=== PATIENT | male | born 1985 | race Caucasian/White ===

== ENCOUNTER 2021-03-16 23:28 | Emergency (ER) | payer OTHER, SELFPAY ==
--- NOTE | ~2021-03-16 | XR_ITS ---
EXAMINATION: XR CHEST CLINICAL INFORMATION: Shortness of breath COMPARISON: 08/23/2019 TECHNIQUE: Frontal view of the chest was obtained. FINDINGS: Heart size normal. Pulmonary arteries are prominent and unchanged. No lung masses are seen. No infiltrates or effusions. XR/XR chest 1V IMPRESSION: No acute intrathoracic disease
[2021-03-16 23:39] VITALS: BP 128/83; BP 140/90; PULSE 110; PULSE 112; RESP 20; O2SAT 100; O2SAT 95; BMI 19.2
--- NOTE | 2021-03-17 00:05 | ED.SOB ---
HPI - SOB/Dyspnea General Chief Complaint: Dyspnea Stated Complaint: difficulty breathing Time Seen by Provider: 03/17/21 00:04 History of Present Illness HPI Narrative: Patient is a 35-year-old male with a history of asthma. Been hospitalized x1. Positive coughing upper respiratory symptoms. Patient is now some smoke last night. Subsequently felt very short of breath wheezing. Sent in for further evaluation. Try to use his inhaler at home to no relief. Patient also admits to using cocaine a few days ago. Patient denies any intubation in the past. He is immunized for COVID. Related Data Previous Rx's Medication Instructions Recorded prednisone 20 mg tablet 40 mg PO DAILY #10 tab 03/17/21 Allergies Allergy/AdvReac Type Severity Reaction Status Date / Time No Known Allergies Allergy Unverified 12/26/19 17:44 [No Known Allergies*] Review of Systems Review of Systems: Positive coughing shortness of breath positive history of asthma Yes all other systems are reviewed and are negative PMFSH Past Medical History Attestation statement: The following information was validated with the patient. Medical History Asthma Social History Social History Advance Directives: No Advance Directives Information Provided: No Physical Exam Vital Signs: Vital Signs: Last Vital Signs Pulse 109 H 03/17/21 01:27 Resp 18 03/17/21 01:27 BP 111/72 03/17/21 01:27 Pulse Ox 94 03/17/21 01:27 BMI result Body Mass Index 19.2 Appearance: Alert. Oriented X3. No acute distress. Eyes: Pupils equal, round and reactive to light. ENT: Pharynx normal. Neck: Normal inspection. Neck supple. No lymph nodes noted. No crepitus CVS: Normal heart rate and rhythm. Pulses normal. Normal S1 and S2 Respiratory: No respiratory distress. Breath sounds normal. No Wheezing. No rales Abdomen: Soft and nontender. No rigidity. No distention. good BS x4 Skin: Skin warm and dry. Normal skin color. Normal skin turgor. Extremities: No lower extremity edema. Neurovascular intact to all extremities. No Lacerations. No Rash Neuro: Oriented X 3. No motor deficit. No sensory deficit. Moving all extermities. No slurred speech MDM - SOB/Dyspnea MDM Narrative Medical decision making narrative: Given neb treatment. Symptoms improved dramatically. Steroid given. Observe any emergency department. Patient's EKG showed a sinus pattern heart rate was 100 MS cares QT within normal limits as no acute ST segment elevation. Electrolytes unremarkable. Chest x-ray showed no focal infiltrate. COVID test was negative. Will discharge patient home. Ambulated well in the ED. In stable condition. On repeat check patient had minimal wheezing but moving good air. Lab Data Attestation: I reviewed the patient's lab results. Labs: Lab Results 03/17/21 Range/Units 00:50 COVID-19 ([facility]) Negative (Negative) COVID-19 Clin Com See Note Discharge Plan Discharge Clinical Impression: Asthma with exacerbation Patient Disposition: Home, Self-Care Instructions: Asthma (ED) Prescriptions: New prednisone 20 mg tablet 40 mg PO DAILY Qty: 10 RF: 0 Referrals: Physician,Unknown J [Primary Care Provider] - 2 days
--- NOTE | 2021-03-17 00:18 | ECG_ITS ---
Test Reason : SOB Blood Pressure : / mmHG Vent. Rate : 107 BPM Atrial Rate : 107 BPM P-R Int : 144 ms QRS Dur : 078 ms QT Int : 320 ms P-R-T Axes : 082 -07 059 degrees QTc Int : 427 ms Sinus tachycardia Otherwise normal ECG When compared with ECG of 22-JUN-2019 08:37, Vent. rate has increased BY 35 BPM Referred By: Allegra Ruiz Electronically Signed By:Da Pelaez
--- NOTE | 2021-03-17 00:19 | PC.NURSE ---
PT received breathing treatment, no longer reporting SOB. PT is still complaining of CP. This RN ordered EKG and PT placed on a monitoring engineer.
[2021-03-17] MEDS: predniSONE 20 MG TABLET 60 MG PO (00:45)
[2021-03-17 01:19] LABS: COVID-19 Test Negative (Negative)
[2021-03-17 01:27] VITALS: BP 111/72; PULSE 109; RESP 18; O2SAT 94
--- NOTE | 2021-03-17 01:28 | PC.NURSE ---
Provider made aware of PT complaint of chest tightness. Provider asked this RN to take PT off of supplemental O2.
[2021-03-17 02:24] VITALS: PULSE 96; O2SAT 91
[2021-03-17] MEDS: Albuterol Sulfate (0.083%) 2.5 MG/3 ML VIAL.NEB 5 MG INHALE (02:24)
[2021-03-17] MEDS: Acetaminophen 325 MG TABLET 650 MG PO (02:57)
== END 2021-03-17 03:26 | disposition home or self-care (01) ==
PROVIDERS: Emergency Provider Emergency Medicine Emergency Medical Services
DX: J45.901 Unspecified asthma with (acute) exacerbation (principal); Z20.822 Contact with and (suspected) exposure to COVID-19
CPT/HCPCS: 36415; 71045; 87635; 93005; 99284

== ENCOUNTER 2021-03-22 15:22 | Emergency (ER) | payer OTHER, SELFPAY ==
--- NOTE | ~2021-03-22 | XR_ITS ---
EXAMINATION: XR CHEST CLINICAL INFORMATION: Shortness of breath with wheezing COMPARISON: 03/17/2020 TECHNIQUE: Frontal view of the chest was obtained. FINDINGS: Lungs remain well-expanded and clear. Chronic coarse interstitial prominence consistent with bronchial wall thickening in the setting of reactive airways disease. No focal consolidation to suggest superimposed consolidative pneumonia. Normal heart size. No pleural effusion or pneumothorax. Regional skeleton intact. XR/XR chest 1V IMPRESSION: No acute pulmonary disease. Chronic interstitial prominence consistent with reactive airways disease.
[2021-03-22 15:33] VITALS: BP 107/73; PULSE 70; O2SAT 95
[2021-03-22 15:46] VITALS: BP 106/59; PULSE 65; RESP 18; TEMP 36.8; O2SAT 95; BMI 25.9
--- NOTE | 2021-03-22 15:46 | ECG_ITS ---
Test Reason : DYSPNEA Blood Pressure : / mmHG Vent. Rate : 084 BPM Atrial Rate : 084 BPM P-R Int : 158 ms QRS Dur : 082 ms QT Int : 360 ms P-R-T Axes : 081 000 042 degrees QTc Int : 425 ms Normal sinus rhythm with sinus arrhythmia Normal ECG When compared with ECG of 17-MAR-2021 00:36, No significant change was found Referred By: Margarita Schwartz Electronically Signed By:ALIS HENDRIX MD
--- NOTE | 2021-03-22 15:54 | ED.ASTHMA ---
HPI - Asthma General Chief Complaint: Asthma Stated Complaint: ASTHMA ATTACK PER EMS Time Seen by Provider: 03/22/21 15:24 Source: patient and EMS Mode of arrival: EMS Limitations: no limitations History of Present Illness HPI Narrative: 35-year-old male with a past medical history of asthma, anxiety, depression and substance abuse presenting to the ED via EMS currently receiving a DuoNeb with oxygen at 88% on room air with complaints of increased shortness of breath/chest tightness/wheezing over the past few days worse today. Reports that he usually uses his albuterol inhaler although no symptomatic relief. He reports that he was seen here on 03/16/2021 for same complaint and discharge with steroids and he reports he has taking as prescribed. He reports he has been hospitalized once in the past. Denies ever being intubated. Denies any fevers, chills, dizziness, headaches, changes in vision, jaw pain, dyspnea on exertion, orthopnea, palpitations, nausea/vomiting/diarrhea, abdominal pain, lower extremity edema, calf tenderness, recent travel or sick contacts, loss of taste or smell. Reports that he is vaccinated to COVID and to the flu. MD complaint: asthma attack , shortness of breath and wheezing Onset (ago): day(s) Severity: severe and worse than usual Context: none known Associated symptoms: none Asthma History: other (Has been hospitalized once) Treatments Prior to Arrival: inhaled bronchodilator Related Data Current Asthma Therapy: inhaled bronchodilator Previous Rx's Medication Instructions Recorded prednisone 20 mg tablet 40 mg PO DAILY #10 tab 03/17/21 Allergies Allergy/AdvReac Type Severity Reaction Status Date / Time No Known Allergies Allergy Unverified 12/26/19 17:44 [No Known Allergies*] Review of Systems Review of Systems: Constitutional : denies med noncompliance, no history of PE or DVT, denies recent travel, No Fever, No Chills ENT/Mouth : No Hoarseness, No sore throat, No Rhinorrhea, No Nasal congestion, No Sinus Pressure, No Ear Pain, No stridor, Eyes: No Redness, No Discharge, No Vision Changes Cardiovascular : No Chest Pain, + SOB, No Dyspnea on Exertion, No Edema, no pleurisy, Respiratory : No Cough, + wheezing, No Sputum, no stridor, no hemoptysis, Gastrointestinal : No Nausea, No Vomiting, No Diarrhea, No abdominal Pain Genitourinary : No Dysuria, No Hematuria Musculoskeletal : No joint pain/swelling, No Myalgias Extremities: no extremity swelling /pain Skin : No rash, no itching, no swelling Neuro : No Weakness, No Numbness, No Headache, No Dizziness, No Paresthesias Psych : No anxiety, depression Heme/Lymph: No Bruising, No Bleeding Endocrine : No Polyuria, No Polydipsia Yes all other systems are reviewed and are negative [facility] Past Medical History Attestation statement: The following information was validated with the patient. Medical History Asthma Social History Social History Advance Directives: No Advance Directives Information Provided: No Physical Exam Vital Signs: Vital Signs: Last Vital Signs Temp 98.2 F 03/22/21 15:46 Pulse 94 03/22/21 18:28 Resp 18 03/22/21 17:01 BP 106/59 L 03/22/21 15:46 Pulse Ox 92 03/22/21 18:28 Oxygen Flow Rate 4 03/22/21 15:46 BMI result Body Mass Index 25.9 vital signs have been reviewed as normal and appeared to be correct. Blood pressure hypotensive at 106/59. Heart rate normal. Respiration rate normal. Temperature normal. Oxygen saturation hypoxic at 88% on RA. Appearance: Alert. Oriented X3. In acute respiratory distress. Head: Normal external exam. Normocephalic. Atraumatic. Eyes: PERRLA. EOMI. Conjunctiva and sclera normal. Eyelids normal. ENT: Pharynx normal. Uvula midline. Moist mucous membranes. No trismus noted. No drooling noted. No muffled voice noted. Neck: Normal inspection. Neck supple. FROM. No adenopathy. Thyroid Normal. No meningeal signs. No neck mass noted. CVS: Normal heart rate and rhythm. Heart sound normal. Pulses normal throughout. No murmurs/rales/gallops. Respiratory: In respiratory distress with decreased breath sounds and inspiratory and expiratory wheezing throughout with accessory muscle usage and abdominal retractions. No rales/rhonchi noted. Chest nontender. Abdomen: Soft and nontender. Bowel sounds normal in all 4 quadrants. No distention noted. No organomegaly noted. No visible injury noted. Back: No CVA tenderness. Full range of motion noted. No rashes/lesion/induration/fluctuance or signs of infection noted. Skin: Skin warm and dry. Normal skin color. Normal skin turgor. No rashes/lesions/lacerations noted. Extremities: No lower extremity edema. No calf tenderness is noted. Extremities exhibit normal range of motion. Extremities nontender. Neuro: Oriented X 3. No motor deficit. No sensory deficit. Reflexes normal. Normal steady gait. No focal neuro deficits noted. Vascular: + radial pulses/+ 2 distal pedal pulses/+2 dorsalis pedis b/l. Normal cap refill. No cyanosis noted to upper extremity nails and lower extremity toes nails. Course Course Course Narrative: 19:30 - labs reviewed and all labs within normal limits. UA revealed 5 ketones and 15-29 white blood cells although no nitrates. Will wait for culture. Patient positive for opioids/fentanyl/cocaine and marijuana. He admits to buying pills off of the streets and I explained to him that most likely his pills are being mixed with fentanyl. Patient noted for COVID/RSV/flu. Chest x-ray revealed chronic interstitial prominence consistent with reactive airway disease otherwise no other acute processes. EKG normal sinus rhythm no acute ischemic change are noted. - with resting patient is a 89-92% on room air and then when you walk the patient he goes up to 92-94% on room air although I do not feel comfortable discharging the patient as this is his 2nd visit here his oxygen has not gone over 95% and patient also feels the same way that he should be admitted. Therefore I spoke to Dr. Kahn and she is septic admission at this time. MDM - Asthma MDM Narrative Medical decision making narrative: 15:50pm 35-year-old male presenting to the ED with acute asthma exacerbation over the past few days worse today via EMS receiving DuoNeb with oxygen at 88% on room air and mildly hypotensive at 106/59. Otherwise all other vitals are within normal limits. CV RRR. On exam patient noted to have inspiratory and expiratory wheezing throughout with decreased breath sounds and accessory muscle usage noted and abdominal retractions. No rales/rhonchi noted. No lower extremity edema or calf tenderness is noted. Therefore at this time will obtain labs, EKG, chest x-ray, swab the patient for COVID/RSV/flu and Provide an hour long breathing treatment, a L of IV fluids, 125 mg IV Solu-Medrol, 2 g of magnesium then re-evaluate. Differential Diagnosis Differential diagnosis: Likely Acute exacerbation, Status asthmaticus, Acute asthmatic bronchitis, Pneumonia and Pneumothorax Medical Records Attestation: I reviewed the patient's medical records. Lab Data Attestation: I reviewed the patient's lab results. Result diagrams: 03/22/21 16:02 03/22/21 16:02 Labs: Lab Results 03/22/21 03/22/21 03/22/21 Range/Units 16:01 16:02 16:02 WBC 10.3 (4.8-10.8) X10*3/uL RBC 4.98 (4.60-5.80) X10*6/uL Hgb 14.6 (14.0-18.0) g/dl Hct 44.0 (42.0-52.0) % MCV 88.4 (80.0-98.0) fL MCH 29.3 (27.0-33.0) pg MCHC 33.2 (31.0-36.0) g/dl RDW 12.7 (11.0-16.0) % Plt Count 242 (160-400) X10*3/uL MPV 10.7 (9.4-12.4) fL Immature Gran % (Auto) 0.2 (0.0-0.4) % Neut % (Auto) 70.9 (45-73) % Lymph % (Auto) 13.6 L (20-40) % [place] % (Auto) 7.3 (2-11) % Eos % (Auto) 7.7 H (0-4) % Baso % (Auto) 0.3 (0-2) % Lymph # (Auto) 1.4 (1.2-4.9) X10*3/uL [place] # (Auto) 0.8 (0.1-1.2) X10*3/uL Eos # (Auto) 0.8 H (0.0-0.4) X10*3/uL Baso # (Auto) 0.0 (0.0-0.2) X10*3/uL Abs Immat Gran (auto) 0.02 (0.00-0.03) X10*3/uL Absolute Neuts (auto) 7.3 (2.0-8.3) x10*3/uL Absolute Nucleated RBC 0.000 (0.0-0.012) X10*3/uL Nucleated RBC % (auto) 0.0 (0.0-0.2) /100WBC Hold Purple Top SEE NOTE Sodium (135-145) mmol/L Potassium (3.3-5.1) mmol/L Chloride (96-108) mmol/L Carbon Dioxide (22-29) mmol/L Anion Gap (12-20) BUN (9-16) mg/dL Creatinine (0.5-1.4) mg/dL Estim Creat Clear Calc Estimated GFR Random Glucose (60-115) mg/dL Lactic Acid (0.5-2.0) mmol/L Calcium (8.4-10.2) mg/dL Magnesium (1.6-2.6) mg/dL Total Bilirubin (0.0-1.0) mg/dL AST (5-37) U/L ALT (0-40) U/L Alkaline Phosphatase (39-117) U/L Total Protein (6.5-8.0) g/dL Albumin (3.5-5.0) g/dL Urine Color Urine Appearance Urine pH (5.0-8.0) Ur Specific [place] (1.005-1.025) Urine Protein (NEG-TRACE) MG/DL Urine Glucose (UA) (NEG) MG/DL Urine Ketones (NEG) MG/DL Urine Blood (NEG) Urine Nitrite (NEG) Ur Leukocyte Esterase (NEG) Urine RBC (0) /HPF Urine WBC (0-4) /HPF Ur Squamous Epith Cells /LPF Urine Bacteria /LPF WBC Casts /LPF Urine Mucus /LPF Urine Opiates Screen (Not Detect) Urine Fentanyl Screen (Not Detect) Ur Barbiturates Screen (Not Detect) Ur Phencyclidine Scrn (Not Detect) Ur Amphetamines Screen (Not Detect) U Benzodiazepines Scrn (Not Detect) Urine Cocaine Screen (Not Detect) U Marijuana (THC) Screen (Not Detect) Influenza Type A (PCR) NEGATIVE (Negative) Influenza Type B (PCR) NEGATIVE (Negative) RSV RNA Qual (PCR) NEGATIVE (Negative) SARS-CoV-2 RNA (RT-PCR) NEGATIVE (Negative) 03/22/21 03/22/21 03/22/21 Range/Units 16:02 16:02 16:47 WBC (4.8-10.8) X10*3/uL RBC (4.60-5.80) X10*6/uL Hgb (14.0-18.0) g/dl Hct (42.0-52.0) % MCV (80.0-98.0) fL MCH (27.0-33.0) pg MCHC (31.0-36.0) g/dl RDW (11.0-16.0) % Plt Count (160-400) X10*3/uL MPV (9.4-12.4) fL Immature Gran % (Auto) (0.0-0.4) % Neut % (Auto) (45-73) % Lymph % (Auto) (20-40) % [place] % (Auto) (2-11) % Eos % (Auto) (0-4) % Baso % (Auto) (0-2) % Lymph # (Auto) (1.2-4.9) X10*3/uL [place] # (Auto) (0.1-1.2) X10*3/uL Eos # (Auto) (0.0-0.4) X10*3/uL Baso # (Auto) (0.0-0.2) X10*3/uL Abs Immat Gran (auto) (0.00-0.03) X10*3/uL Absolute Neuts (auto) (2.0-8.3) x10*3/uL Absolute Nucleated RBC (0.0-0.012) X10*3/uL Nucleated RBC % (auto) (0.0-0.2) /100WBC Hold Purple Top Sodium 135 (135-145) mmol/L Potassium 3.8 (3.3-5.1) mmol/L Chloride 102 (96-108) mmol/L Carbon Dioxide 25 (22-29) mmol/L Anion Gap 12 (12-20) BUN 7 L (9-16) mg/dL Creatinine 0.89 (0.5-1.4) mg/dL Estim Creat Clear Calc 109.3 Estimated GFR > 60 Random Glucose 113 (60-115) mg/dL Lactic Acid 1.0 (0.5-2.0) mmol/L Calcium 9.4 (8.4-10.2) mg/dL Magnesium 2.1 (1.6-2.6) mg/dL Total Bilirubin 0.6 (0.0-1.0) mg/dL AST 18 (5-37) U/L ALT 10 (0-40) U/L Alkaline Phosphatase 78 (39-117) U/L Total Protein 6.5 (6.5-8.0) g/dL Albumin 3.9 (3.5-5.0) g/dL Urine Color YELLOW Urine Appearance HAZY Urine pH 6.0 (5.0-8.0) Ur Specific [place] 1.025 (1.005-1.025) Urine Protein NEG (NEG-TRACE) MG/DL Urine Glucose (UA) NEG (NEG) MG/DL Urine Ketones 5 (NEG) MG/DL Urine Blood TRACE (NEG) Urine Nitrite NEG (NEG) Ur Leukocyte Esterase NEG (NEG) Urine RBC 0 (0) /HPF Urine WBC 15-29 H (0-4) /HPF Ur Squamous Epith Cells NONE /LPF Urine Bacteria NONE /LPF WBC Casts 0-2 /LPF Urine Mucus 2+ /LPF Urine Opiates Screen (Not Detect) Urine Fentanyl Screen (Not Detect) Ur Barbiturates Screen (Not Detect) Ur Phencyclidine Scrn (Not Detect) Ur Amphetamines Screen (Not Detect) U Benzodiazepines Scrn (Not Detect) Urine Cocaine Screen (Not Detect) U Marijuana (THC) Screen (Not Detect) Influenza Type A (PCR) (Negative) Influenza Type B (PCR) (Negative) RSV RNA Qual (PCR) (Negative) SARS-CoV-2 RNA (RT-PCR) (Negative) 03/22/21 Range/Units 16:47 WBC (4.8-10.8) X10*3/uL RBC (4.60-5.80) X10*6/uL Hgb (14.0-18.0) g/dl Hct (42.0-52.0) % MCV (80.0-98.0) fL MCH (27.0-33.0) pg MCHC (31.0-36.0) g/dl RDW (11.0-16.0) % Plt Count (160-400) X10*3/uL MPV (9.4-12.4) fL Immature Gran % (Auto) (0.0-0.4) % Neut % (Auto) (45-73) % Lymph % (Auto) (20-40) % [place] % (Auto) (2-11) % Eos % (Auto) (0-4) % Baso % (Auto) (0-2) % Lymph # (Auto) (1.2-4.9) X10*3/uL [place] # (Auto) (0.1-1.2) X10*3/uL Eos # (Auto) (0.0-0.4) X10*3/uL Baso # (Auto) (0.0-0.2) X10*3/uL Abs Immat Gran (auto) (0.00-0.03) X10*3/uL Absolute Neuts (auto) (2.0-8.3) x10*3/uL Absolute Nucleated RBC (0.0-0.012) X10*3/uL Nucleated RBC % (auto) (0.0-0.2) /100WBC Hold Purple Top Sodium (135-145) mmol/L Potassium (3.3-5.1) mmol/L Chloride (96-108) mmol/L Carbon Dioxide (22-29) mmol/L Anion Gap (12-20) BUN (9-16) mg/dL Creatinine (0.5-1.4) mg/dL Estim Creat Clear Calc Estimated GFR Random Glucose (60-115) mg/dL Lactic Acid (0.5-2.0) mmol/L Calcium (8.4-10.2) mg/dL Magnesium (1.6-2.6) mg/dL Total Bilirubin (0.0-1.0) mg/dL AST (5-37) U/L ALT (0-40) U/L Alkaline Phosphatase (39-117) U/L Total Protein (6.5-8.0) g/dL Albumin (3.5-5.0) g/dL Urine Color Urine Appearance Urine pH (5.0-8.0) Ur Specific [place] (1.005-1.025) Urine Protein (NEG-TRACE) MG/DL Urine Glucose (UA) (NEG) MG/DL Urine Ketones (NEG) MG/DL Urine Blood (NEG) Urine Nitrite (NEG) Ur Leukocyte Esterase (NEG) Urine RBC (0) /HPF Urine WBC (0-4) /HPF Ur Squamous Epith Cells /LPF Urine Bacteria /LPF WBC Casts /LPF Urine Mucus /LPF Urine Opiates Screen POSITIVE H (Not Detect) Urine Fentanyl Screen POSITIVE H (Not Detect) Ur Barbiturates Screen Not Detected (Not Detect) Ur Phencyclidine Scrn Not Detected (Not Detect) Ur Amphetamines Screen Not Detected (Not Detect) U Benzodiazepines Scrn Not Detected (Not Detect) Urine Cocaine Screen POSITIVE H (Not Detect) U Marijuana (THC) Screen POSITIVE H (Not Detect) Influenza Type A (PCR) (Negative) Influenza Type B (PCR) (Negative) RSV RNA Qual (PCR) (Negative) SARS-CoV-2 RNA (RT-PCR) (Negative) Imaging Data Chest x-ray: Attestation: I personally reviewed and interpreted this imaging study as follows: Radiologist's impression: FINDINGS: Lungs remain well-expanded and clear. Chronic coarse interstitial prominence consistent with bronchial wall thickening in the setting of reactive airways disease. No focal consolidation to suggest superimposed consolidative pneumonia. Normal heart size. No pleural effusion or pneumothorax. Regional skeleton intact. XR/XR chest 1V IMPRESSION: No acute pulmonary disease. Chronic interstitial prominence consistent with reactive airways disease. ECG Data Attestation: I personally reviewed and interpreted this ECG as follows: ECG interpretation date: 03/22/21 ECG interpretation time: 05:05 Interpretation: Normal sinus rhythm with sinus arrhythmia with a ventricular rate of 84 with a normal DC interval normal QRS duration normal QT/QTC interval. No acute ischemic changes are noted. Similar when compared to prior EKG 03/17/2021 Critical Care Time Critical Care Time Critical Care Time: Yes Total Critical Care Time: 60 Attestation: I personally attest to this time spent taking care of the patient Discharge Plan Discharge Clinical Impression: Asthma with acute exacerbation, Acute bronchitis with bronchospasm Patient Disposition: Still a Patient Prescriptions: No Action prednisone 20 mg tablet 40 mg PO DAILY Qty: 10 RF: 0
[2021-03-22 16:10] LABS: MANUAL DIFF FLAG NO
[2021-03-22 16:12] LABS: Basophils Percent Auto 0.3 % (0-2); Eosinophils Absolute Auto 0.8 X10*3/uL (0.0-0.4); Eosinophils Percent Auto 7.7 % (0-4); Hemoglobin 14.6 g/dl (14.0-18.0); Imm Gran Abs Auto 0.02 X10*3/uL (0.00-0.03); Imm Gran Pct Auto 0.2 % (0.0-0.4); Lymphocytes Absolute Auto 1.4 X10*3/uL (1.2-4.9); Lymphocytes Percent Auto 13.6 % (20-40); Mean Corpuscular HGB Conc 33.2 g/dl (31.0-36.0); Mean Corpuscular Hemoglobin 29.3 pg (27.0-33.0); Mean Corpuscular Volume 88.4 fL (80.0-98.0); Mean Platelet Volume 10.7 fL (9.4-12.4); Monocytes Absolute Auto 0.8 X10*3/uL (0.1-1.2); Monocytes Percent Auto 7.3 % (2-11); Neutrophils Absolute Auto 7.3 x10*3/uL (2.0-8.3); Neutrophils Percent Auto 70.9 % (45-73); Platelet Count 242 X10*3/uL (160-400); Red Blood Count 4.98 X10*6/uL (4.60-5.80); Red Cell Distribution Width 12.7 % (11.0-16.0); White Blood Count 10.3 X10*3/uL (4.8-10.8)
[2021-03-22 16:19] VITALS: PULSE 96; RESP 20; O2SAT 94
[2021-03-22] MEDS: Magnesium Sulfate/H2O 2 GM/50 ML PIGGYBACK IV (16:21)
[2021-03-22] MEDS: methylPREDNISolone Sod Succ 125 MG/2 ML VIAL IVPUSH (16:21)
[2021-03-22 16:30] LABS: Alanine Aminotransferase 10 U/L (0-40); Albumin Level 3.9 g/dL (3.5-5.0); Alkaline Phosphatase 78 U/L (39-117); Anion Gap 12 (12-20); Aspartate Amino Transferase 18 U/L (5-37); Bilirubin Total 0.6 mg/dL (0.0-1.0); Blood Urea Nitrogen 7 mg/dL (9-16); Calcium 9.4 mg/dL (8.4-10.2); Carbon Dioxide 25 mmol/L (22-29); Chloride 102 mmol/L (96-108); Creatinine Clr Calc Pharmacy 109.3; Estimated Glomerular Filt Rate > 60; Glucose Random 113 mg/dL (60-115); Magnesium 2.1 mg/dL (1.6-2.6); Potassium 3.8 mmol/L (3.3-5.1); Sodium 135 mmol/L (135-145); Total Protein 6.5 g/dL (6.5-8.0)
[2021-03-22 16:48] LABS: Influenza A PCR NEGATIVE (Negative); Influenza B PCR NEGATIVE (Negative); Resp Syncy Virus RNA Qual PCR NEGATIVE (Negative); SARS COV2 PCR INHOUSE NEGATIVE (Negative)
[2021-03-22] MEDS: Albuterol Sulfate (0.083%) 2.5 MG/3 ML VIAL.NEB 10 MG INHALE (16:59)
[2021-03-22 17:01] VITALS: PULSE 95; RESP 18; O2SAT 95
[2021-03-22 17:02] LABS: Appearance Urine HAZY; Color Urine YELLOW; Glucose Urine UA NEG (NEG); Leukocyte Esterase Urine NEG (NEG); Nitrite Urine NEG (NEG); Specific Gravity - Urine 1.025 (1.005-1.025); UACC Culture Trigger NO; Urine Blood TRACE (NEG); Urine Ketones 5 MG/DL (NEG); Urine Protein NEG (NEG-TRACE)
[2021-03-22 17:08] LABS: Amphetamine Screen Urine Not Detected (Not Detect); Barbiturates, Urine Not Detected (Not Detect); Benzodiazepines Screen Urine Not Detected (Not Detect); Cannabinoid Screen Urine POSITIVE (Not Detect); Cocaine Screen Urine POSITIVE (Not Detect); Fentanyl, urine POSITIVE (Not Detect); Opiate Screen Urine POSITIVE (Not Detect); Phencyclidine Screen Urine Not Detected (Not Detect)
[2021-03-22 18:28] VITALS: PULSE 94; O2SAT 92; O2SAT 94
[2021-03-22 18:33] LABS: RBC Urine 0 /HPF (0); UACC CULT YES
[2021-03-22 18:34] LABS: Mucus Urine 2+ /LPF; White Blood Cell Casts Urine 0-2 /LPF
[2021-03-22] MEDS: 0.9 % Sodium Chloride 1,000 ML 999 ML IVCONT (19:01)
--- NOTE | 2021-03-22 20:36 | PHA.MEDREC ---
Pharmacy Consult ? Medication Reconciliation Pharmacy has completed the medication reconciliation. Patient only on albuterol inhaler ( which he could not get refilled at pharmacy) and has finished prednisone ( which he was prescribed on 03/17/21 for 5 days)
--- NOTE | 2021-03-22 21:12 | PM.IMHP ---
History of Present Illness Date of Service: 03/22/21 Chief Complaint: SOB, asthma [facility] Medical History Asthma Social History Advance Directives: No Advance Directives Information Provided: No Meds Allergies Allergy/AdvReac Type Severity Reaction Status Date / Time No Known Allergies Allergy Unverified 12/26/19 17:44 [No Known Allergies*] Active Medications: Current Medications Pharmacy Consult (Consult Rx Perform Med Rec) 1 each MISCELLANE ONCE PRN PRN Reason: Consult order Home Medications Medication Instructions Recorded Confirmed Last Taken Type albuterol sulfate 90 mcg/actuation 2 puff INHALATION Q4-6H PRN 03/22/21 03/22/21 Unknown History aerosol inhaler Physical Exam Vital Signs and Narrative: Vital Signs: Last Vital Signs Temp 98.2 F 03/22/21 15:46 Pulse 94 03/22/21 18:28 Resp 18 03/22/21 17:01 BP 106/59 L 03/22/21 15:46 Pulse Ox 92 03/22/21 18:28 Oxygen Flow Rate 4 03/22/21 15:46 BMI result Body Mass Index 25.9 Results Labs CBC and Chem 7: 03/22/21 16:02 03/22/21 16:02 Labs: Laboratory Results - last 24 hr 03/22/21 03/22/21 03/22/21 16:01 16:02 16:02 MCV 88.4 MCH 29.3 MCHC 33.2 RDW 12.7 Plt Count 242 MPV 10.7 Immature Gran % (Auto) 0.2 Neut % (Auto) 70.9 Lymph % (Auto) 13.6 L [place] % (Auto) 7.3 Eos % (Auto) 7.7 H Baso % (Auto) 0.3 Lymph # (Auto) 1.4 [place] # (Auto) 0.8 Eos # (Auto) 0.8 H Baso # (Auto) 0.0 Abs Immat Gran (auto) 0.02 Absolute Neuts (auto) 7.3 Absolute Nucleated RBC 0.000 Nucleated RBC % (auto) 0.0 Hold Purple Top SEE NOTE Anion Gap Estim Creat Clear Calc Estimated GFR Random Glucose Lactic Acid Calcium Magnesium Total Bilirubin AST ALT Alkaline Phosphatase Total Protein Albumin Urine Color Urine Appearance Urine pH Ur Specific [place] Urine Protein Urine Glucose (UA) Urine Ketones Urine Blood Urine Nitrite Ur Leukocyte Esterase Urine RBC Urine WBC Ur Squamous Epith Cells Urine Bacteria WBC Casts Urine Mucus Urine Opiates Screen Urine Fentanyl Screen Ur Barbiturates Screen Ur Phencyclidine Scrn Ur Amphetamines Screen U Benzodiazepines Scrn Urine Cocaine Screen U Marijuana (THC) Screen Influenza Type A (PCR) NEGATIVE Influenza Type B (PCR) NEGATIVE RSV RNA Qual (PCR) NEGATIVE SARS-CoV-2 RNA (RT-PCR) NEGATIVE 03/22/21 03/22/21 03/22/21 16:02 16:02 16:47 MCV MCH MCHC RDW Plt Count MPV Immature Gran % (Auto) Neut % (Auto) Lymph % (Auto) [place] % (Auto) Eos % (Auto) Baso % (Auto) Lymph # (Auto) [place] # (Auto) Eos # (Auto) Baso # (Auto) Abs Immat Gran (auto) Absolute Neuts (auto) Absolute Nucleated RBC Nucleated RBC % (auto) Hold Purple Top Anion Gap 12 Estim Creat Clear Calc 109.3 Estimated GFR > 60 Random Glucose 113 Lactic Acid 1.0 Calcium 9.4 Magnesium 2.1 Total Bilirubin 0.6 AST 18 ALT 10 Alkaline Phosphatase 78 Total Protein 6.5 Albumin 3.9 Urine Color YELLOW Urine Appearance HAZY Urine pH 6.0 Ur Specific [place] 1.025 Urine Protein NEG Urine Glucose (UA) NEG Urine Ketones 5 Urine Blood TRACE Urine Nitrite NEG Ur Leukocyte Esterase NEG Urine RBC 0 Urine WBC 15-29 H Ur Squamous Epith Cells NONE Urine Bacteria NONE WBC Casts 0-2 Urine Mucus 2+ Urine Opiates Screen Urine Fentanyl Screen Ur Barbiturates Screen Ur Phencyclidine Scrn Ur Amphetamines Screen U Benzodiazepines Scrn Urine Cocaine Screen U Marijuana (THC) Screen Influenza Type A (PCR) Influenza Type B (PCR) RSV RNA Qual (PCR) SARS-CoV-2 RNA (RT-PCR) 03/22/21 16:47 MCV MCH MCHC RDW Plt Count MPV Immature Gran % (Auto) Neut % (Auto) Lymph % (Auto) [place] % (Auto) Eos % (Auto) Baso % (Auto) Lymph # (Auto) [place] # (Auto) Eos # (Auto) Baso # (Auto) Abs Immat Gran (auto) Absolute Neuts (auto) Absolute Nucleated RBC Nucleated RBC % (auto) Hold Purple Top Anion Gap Estim Creat Clear Calc Estimated GFR Random Glucose Lactic Acid Calcium Magnesium Total Bilirubin AST ALT Alkaline Phosphatase Total Protein Albumin Urine Color Urine Appearance Urine pH Ur Specific [place] Urine Protein Urine Glucose (UA) Urine Ketones Urine Blood Urine Nitrite Ur Leukocyte Esterase Urine RBC Urine WBC Ur Squamous Epith Cells Urine Bacteria WBC Casts Urine Mucus Urine Opiates Screen POSITIVE H Urine Fentanyl Screen POSITIVE H Ur Barbiturates Screen Not Detected Ur Phencyclidine Scrn Not Detected Ur Amphetamines Screen Not Detected U Benzodiazepines Scrn Not Detected Urine Cocaine Screen POSITIVE H U Marijuana (THC) Screen POSITIVE H Influenza Type A (PCR) Influenza Type B (PCR) RSV RNA Qual (PCR) SARS-CoV-2 RNA (RT-PCR) Imaging Radiologist's Impressions: Impressions Chest X-Ray 03/22/21 16:10 IMPRESSION: No acute pulmonary disease. Chronic interstitial prominence consistent with reactive airways disease.
[2021-03-22] MEDS: Albuterol Sulfate 90 MCG 8 GM INHALER 2 PUFF INHALE (22:05)
== END 2021-03-22 22:20 | disposition left against medical advice (07) ==
LOC: HO.ED 16:34 → HO.EDOVER 21:46
PROVIDERS: Physician Assistant Medical; Emergency Provider Emergency Medicine; PCP Internal Medicine
DX: J45.901 Unspecified asthma with (acute) exacerbation (principal); J20.9 Acute bronchitis, unspecified; Z79.899 Other long term (current) drug therapy; Z20.822 Contact with and (suspected) exposure to COVID-19
CPT/HCPCS: 0241U; 36415; 71045; 80053; 80307; 81001; 81003; 83605; 83735; 85025; 87040; 87086; 93005; 94640; 94644; 96361; 96365; 96366; 96375; 99284; 99291; J2930; J3475

== ENCOUNTER 2021-04-23 00:40 | Inpatient (IN) | payer OTHER, SELFPAY ==
[2021-04-23] VITALS (20 sets, daily range): BP systolic 103–128; BP diastolic 58–95; PULSE 99–127; RESP 16–40; TEMP 36.5–37; O2SAT 92–100; BMI 20.2
--- NOTE | ~2021-04-23 | XR_ITS ---
EXAMINATION: XR CHEST CLINICAL INFORMATION: Acute asthma exacerbation COMPARISON: 03.22.2021 TECHNIQUE: Frontal view of the chest was obtained. FINDINGS: No significant abnormality is noted involving the heart, lungs, mediastinum, bony thorax or soft tissues. XR/XR chest 1V IMPRESSION: Unremarkable examination.
--- NOTE | 2021-04-23 00:42 | ED.SOB ---
HPI - SOB/Dyspnea General Chief Complaint: Upper Respiratory Symptoms Stated Complaint: difficulty breathing Time Seen by Provider: 04/23/21 00:41 Source: patient Mode of arrival: EMS Limitations: no limitations History of Present Illness HPI Narrative: patient ran out of his medication now with severe shortness of breath. EMS gave a duoneb enroute. Patient is both a cigarette smoker and a marijuana smoker, he states that he used Cocaine and heroine today. Patient was 73% when EMS found him at home MD elicited complaint: shortness of breath Pertinent past history: asthma Onset (ago): hour(s) Timing: constant Severity: severe Exacerbating factors: movement Known history of: asthma Associated symptoms: chest pain and cough Related Data Home Medications Medication Instructions Recorded Confirmed albuterol sulfate 90 mcg/actuation 2 puff INHALATION Q4-6H PRN 03/22/21 04/23/21 aerosol inhaler Previous Rx's Medication Instructions Recorded albuterol sulfate 0.63 mg/3 mL 0.63 mg (3 mL) INHALATION QID PRN 03/22/21 solution for nebulization #75 ml nebulizers (AeroEclipse II #1 ea 03/22/21 Nebulizer) Allergies Allergy/AdvReac Type Severity Reaction Status Date / Time No Known Allergies Allergy Unverified 12/26/19 17:44 [No Known Allergies*] Review of Systems Neurologic: Denies Sensory deficit (Neuro) PMFSH Past Medical History Medical History Asthma Surgical History No pertinent past surgical history Family History Family History Other No pertinent family history Social History Social History Alcohol intake: never Patient Tobacco Use Status: Never used Tobacco Use of substances other than those prescribed or required for medical reasons: Yes Substance Use Type: Crack/Cocaine and Marijuana Substance Use Frequency: Daily Last Used Substance: Just Prior to Admission Any prior treatment program specific to substance use: Yes Advance Directives: No Physical Exam Vital Signs: Vital Signs: Last Vital Signs Temp 98.5 F 04/23/21 04:24 Pulse 112 H 04/23/21 06:00 Resp 16 04/23/21 06:00 BP 103/64 04/23/21 06:00 Pulse Ox 92 04/23/21 06:00 Oxygen Flow Rate 100 04/23/21 01:04 BMI result Body Mass Index 20.2 Const: Other: Male very short of breath in extremis, tripoding Nutritional Appearance: average body habitus Orientation/consciousness: oriented to person and patient oriented x3 Limitations: no limitations HENMT: Head: Yes normal to inspection Ears: external ears normal General nose exam: Normal external nose present Mouth: Normal oral and palatal mucosa present and oropharynx normal Throat: Yes posterior oropharynx normal Eyes: General: appearance normal, both eyes and all related structures Neck: Other: supple Neck: Yes normal visual inspection Chest: Chest palpation & inspection: normal inspection of the chest Resp: Other: diffuse wheezing very tight, with retractions. Cardio: Jugular venous distension: no JVD Rate: regular rate Rhythm: regular rhythm Heart sounds: S1 normal heart sound present and S2 normal heart sound present GI: Inspection: Yes normal to inspection Palpation (GI): Soft to palpation, nontender and No hepatosplenomegaly present Auscultation: normal bowel sounds : General: Yes no CVA tenderness Back/Spine/Pelvis: Back: no CVA tenderness Skin: General skin exam: no rashes or lesions noted Neuro: General: oriented to person and patient oriented x3 Cranial nerves: Yes CN's II-XII intact bilaterally Motor exam (neuro): 5/5 motor strength present throughout Sensory Exam: No Sensory deficit (Neuro) Extrem: General: Yes normal to inspection Psych: Appearance: grossly normal Course Reevaluation(s) Reevaluation #1: still wheezing and hypoxic will give another neb and admit Time: 03:31 MDM - SOB/Dyspnea Lab Data Result diagrams: 04/23/21 01:34 04/23/21 01:34 Labs: Lab Results 04/23/21 04/23/21 04/23/21 Range/Units 01:08 01:34 01:34 WBC 9.7 (4.8-10.8) X10*3/uL RBC 5.21 (4.60-5.80) X10*6/uL Hgb 14.9 (14.0-18.0) g/dl Hct 46.5 (42.0-52.0) % MCV 89.3 (80.0-98.0) fL MCH 28.6 (27.0-33.0) pg MCHC 32.0 (31.0-36.0) g/dl RDW 12.9 (11.0-16.0) % Plt Count 248 (160-400) X10*3/uL MPV 10.9 (9.4-12.4) fL Immature Gran % (Auto) 0.1 (0.0-0.4) % Neut % (Auto) 53.9 (45-73) % Lymph % (Auto) 20.1 (20-40) % [place] % (Auto) 7.4 (2-11) % Eos % (Auto) 17.7 H (0-4) % Baso % (Auto) 0.8 (0-2) % Lymph # (Auto) 1.9 (1.2-4.9) X10*3/uL [place] # (Auto) 0.7 (0.1-1.2) X10*3/uL Eos # (Auto) 1.7 H (0.0-0.4) X10*3/uL Baso # (Auto) 0.1 (0.0-0.2) X10*3/uL Abs Immat Gran (auto) 0.01 (0.00-0.03) X10*3/uL Absolute Neuts (auto) 5.2 (2.0-8.3) x10*3/uL Absolute Nucleated RBC 0.000 (0.0-0.012) X10*3/uL Nucleated RBC % (auto) 0.0 (0.0-0.2) /100WBC Sodium 143 (135-145) mmol/L Potassium 3.8 (3.3-5.1) mmol/L Chloride 104 (96-108) mmol/L Carbon Dioxide 30 H (22-29) mmol/L Anion Gap 13 (12-20) BUN 8 L (9-16) mg/dL Creatinine 1.09 (0.5-1.4) mg/dL Estim Creat Clear Calc 79.0 Estimated GFR > 60 Random Glucose 117 H (60-115) mg/dL Calcium 9.4 (8.4-10.2) mg/dL COVID-19 (KEI) Negative (Negative) COVID-19 Clin Com See Note Imaging Data Chest x-ray: Radiologist's impression: no infiltrate Critical Care Time Critical Care Time Attestation: I spent 40 minutes of critical care, with interventions, assessments, speaking to patient, consultants, and family. I was at the bedside continually reevaluating the patient for intubation Discharge Plan Discharge Clinical Impression: Asthma Qualifiers: Asthma severity: severe Asthma persistence: persistent Asthma complication type: with status asthmaticus Qualified Code(s): J45.52 - Severe persistent asthma with status asthmaticus Patient Disposition: Admitted As Inpatient
[2021-04-23] MEDS: EPINEPHrine 1 MG/ML VIAL 0.2 MG IM ×2 (00:51→01:22)
[2021-04-23] MEDS: methylPREDNISolone Sod Succ 125 MG/2 ML VIAL IVPUSH (00:57)
[2021-04-23] MEDS: Magnesium Sulfate/H2O 2 GM/50 ML PIGGYBACK IV (00:57)
--- NOTE | 2021-04-23 00:59 | PC.NURSE ---
pt sat 73% at home treatment received, pt arrived with retractions, difficutly breathing, dr snell at the bedside. medications received, resp at bedside with alberal 10mg at this time. pt is grunting with each breath, encourage pt to slow his breathing down.
[2021-04-23 01:26] LABS: COVID-19 Test Negative (Negative)
[2021-04-23] MEDS: Albuterol Sulfate (0.083%) 2.5 MG/3 ML VIAL.NEB 10 MG INHALE ×3 (01:26→03:29)
--- NOTE | 2021-04-23 01:35 | PC.NURSE ---
pt is showing signs of improvment. rr slowing down and pt states verbaly he is feeling improvment. rr 30 sat 98% on 3l
[2021-04-23 01:40] LABS: MANUAL DIFF FLAG NO
[2021-04-23 01:46] LABS: Basophils Absolute Auto 0.1 X10*3/uL (0.0-0.2); Basophils Percent Auto 0.8 % (0-2); Eosinophils Absolute Auto 1.7 X10*3/uL (0.0-0.4); Eosinophils Percent Auto 17.7 % (0-4); Hematocrit 46.5 % (42.0-52.0); Hemoglobin 14.9 g/dl (14.0-18.0); Imm Gran Abs Auto 0.01 X10*3/uL (0.00-0.03); Imm Gran Pct Auto 0.1 % (0.0-0.4); Lymphocytes Absolute Auto 1.9 X10*3/uL (1.2-4.9); Lymphocytes Percent Auto 20.1 % (20-40); Mean Corpuscular Hemoglobin 28.6 pg (27.0-33.0); Mean Corpuscular Volume 89.3 fL (80.0-98.0); Mean Platelet Volume 10.9 fL (9.4-12.4); Monocytes Absolute Auto 0.7 X10*3/uL (0.1-1.2); Monocytes Percent Auto 7.4 % (2-11); Neutrophils Absolute Auto 5.2 x10*3/uL (2.0-8.3); Neutrophils Percent Auto 53.9 % (45-73); Platelet Count 248 X10*3/uL (160-400); Red Blood Count 5.21 X10*6/uL (4.60-5.80); Red Cell Distribution Width 12.9 % (11.0-16.0); White Blood Count 9.7 X10*3/uL (4.8-10.8)
--- NOTE | 2021-04-23 01:46 | PC.NURSE ---
pt has been started on his next albuteral treatment. sat 100% rr 22, hr 97. pt is now tx on his phone.
[2021-04-23 01:56] LABS: Anion Gap 13 (12-20); Blood Urea Nitrogen 8 mg/dL (9-16); Calcium 9.4 mg/dL (8.4-10.2); Carbon Dioxide 30 mmol/L (22-29); Chloride 104 mmol/L (96-108); Estimated Glomerular Filt Rate > 60; Glucose Random 117 mg/dL (60-115); Potassium 3.8 mmol/L (3.3-5.1); Sodium 143 mmol/L (135-145)
--- NOTE | 2021-04-23 03:11 | PC.NURSE ---
pt sat 93% on 3L. pt states he can feel his sats are lower. pt talking in full sentences, nasal congestion.
--- NOTE | 2021-04-23 05:49 | PM.IMHP ---
History of Present Illness Date of Service: 04/23/21 Chief Complaint: shortness of breath this is a 35-year-old male with past medical history of asthma who presents to the hospital with complaints of shortness of breath after using heroin and cocaine. Patient reports that he was partying, he had a night of drinking, using cocaine and heroin and all of a sudden developed shortness of breath. He denies having any chest pain, no cough, no abdominal pain nausea or vomiting, no diarrhea constipation, no urinary symptoms and no lower extremity edema. No weakness numbness or tingling, no headache or change in vision vitals on arrival were significant for temp of 98.6?, heart rate of 105, respiratory rate of 40, blood pressure 126/95, placed on non-rebreather satting 99% Labs on arrival significant for WBC count 9.7 otherwise unremarkable. . Patient receives to 2 IM Epi,, 3 rounds of hour long albuterol, mag, and solumedrol but still has wheezing and will be admitted for further management Review of Systems Review of Systems: Yes all other systems are reviewed and are negative [facility] Medical History Asthma Family History Other No pertinent family history Pertinent family history: no history coronary artery disease Surgical History No pertinent past surgical history Social History Alcohol intake: never Patient Tobacco Use Status: Never used Tobacco Use of substances other than those prescribed or required for medical reasons: Yes Substance Use Type: Crack/Cocaine and Marijuana Substance Use Frequency: Daily Last Used Substance: Just Prior to Admission Any prior treatment program specific to substance use: Yes Advance Directives: No Meds Allergies Allergy/AdvReac Type Severity Reaction Status Date / Time No Known Allergies Allergy Unverified 12/26/19 17:44 [No Known Allergies*] Home Medications Medication Instructions Recorded Confirmed Last Taken Type albuterol sulfate 90 mcg/actuation 2 puff INHALATION Q4-6H PRN 03/22/21 03/22/21 Unknown History aerosol inhaler Physical Exam Vital Signs and Narrative: Vital Signs: Last Vital Signs Temp 98.5 F 04/23/21 04:24 Pulse 107 H 04/23/21 05:09 Resp 16 04/23/21 05:09 BP 113/68 04/23/21 05:09 Pulse Ox 95 04/23/21 05:09 Oxygen Flow Rate 100 04/23/21 01:04 BMI result Body Mass Index 20.2 Const: General: cooperative and no acute distress Orientation/consciousness: patient oriented x3 Eyes: General: appearance normal, both eyes and all related structures Pupils: Equal, round and reactive pupils present Resp: Other: expiratory wheezing Effort & Inspection: normal respiratory effort Cardio: Rate: regular rate Rhythm: regular rhythm GI: Palpation (GI): Soft to palpation Auscultation: normal bowel sounds Skin: General skin exam: no rashes or lesions noted Neuro: General: patient oriented x3 Cranial nerves: Yes Equal, round and reactive pupils present Cognition (Neuro): normal cognition Extrem: General: Yes normal to inspection and Yes no pedal edema Results Labs CBC and Chem 7: 04/23/21 01:34 04/23/21 01:34 Labs: Laboratory Results - last 24 hr 04/23/21 04/23/21 04/23/21 01:08 01:34 01:34 MCV 89.3 MCH 28.6 MCHC 32.0 RDW 12.9 Plt Count 248 MPV 10.9 Immature Gran % (Auto) 0.1 Neut % (Auto) 53.9 Lymph % (Auto) 20.1 [place] % (Auto) 7.4 Eos % (Auto) 17.7 H Baso % (Auto) 0.8 Lymph # (Auto) 1.9 [place] # (Auto) 0.7 Eos # (Auto) 1.7 H Baso # (Auto) 0.1 Abs Immat Gran (auto) 0.01 Absolute Neuts (auto) 5.2 Absolute Nucleated RBC 0.000 Nucleated RBC % (auto) 0.0 Anion Gap 13 Estim Creat Clear Calc 79.0 Estimated GFR > 60 Random Glucose 117 H Calcium 9.4 COVID-19 (KEI) Negative COVID-19 Clin Com See Note Imaging Radiologist's Impressions: Impressions Chest X-Ray 04/23/21 01:20 IMPRESSION: Unremarkable examination. Assessment and Plan (1) Asthma exacerbation: Status: Acute (2) Substance abuse: Status: Acute 35-year-old male with past medical history of asthma presents to the hospital with asthma exacerbation after using cocaine # asthma exacerbation - most likely secondary to but substance abuse specifically cocaine - start patient on DuoNeb, Solu-Medrol - oxygen as required # polysubstance abuse - reports using Percocet pills - will consult care team # tobacco use disorder - consulted about according tobacco given his history of asthma and patient is interested in nicotine patch DVT prophylaxis: Atamasoftnox Quality Stroke Does the patient have a stroke diagnosis?: No VTE Prior VTE?: No VTE Risk Level:: Medical - moderate - high VTE Device Contraindication: Treatment Not Indicated VTE Drug Contraindication: N/A - Med Ordered
--- NOTE | 2021-04-23 07:18 | PHA.MEDREC ---
Pharmacy Consult ? Medication Reconciliation Pharmacy has reviewed the medication reconciliation completed by Janene. Elida Torres, LandonD
--- NOTE | 2021-04-23 07:58 | P.EN_ITS ---
Event Note Date of Service: 04/23/21
--- NOTE | 2021-04-23 07:58 | PM.EVENT ---
Event Note Date of Service: 04/23/21
[2021-04-23] MEDS: Nicotine 7 MG PATCH.TD24 TRANSDERMA (08:09)
--- NOTE | 2021-04-23 08:20 | PC.NURSE ---
lungs - tight all lobes.
[2021-04-23] MEDS: Albuterol Sulfate (0.083%) 2.5 MG/3 ML VIAL.NEB 5 MG INHALE (08:32)
[2021-04-23] MEDS: Albuterol/Iprat 2.5/0.5MG 3 ML AMPUL.NEB INHALE (08:32)
--- NOTE | 2021-04-23 09:20 | MHC.CM.PN ---
PT REPORTS HE LIVES WITH HIS COUSIN AND IS INDEPENDENT WITH ALL CARE PT REPORTS HE DOES USE A NEBULIZER PRN BUT NO OTHER DME PT DENIES HAVING HOME OR COMMUNITY SERVICES PT DECLINES TO COMPLETE A HCP PT REPORTS HE DID HAVE A PCP AT [facility] BUT HAS NOT BEEN FOR A LONG TIME. PT DECLINES CM OFFER TO HAVE A FOLLOW UP PCP APPT MADE, HE REPORTS HE WILL MAKE ONE HIMSELF. CURRENT DC PLAN IS HOME WITH NO SERVICES PT WILL ARRANGE TRANSPORT
[2021-04-23] MEDS: 0.9 % Sodium Chloride Flush 3 ML SYRINGE IVFLUSH (09:28)
--- NOTE | 2021-04-23 10:31 | PC.NURSE ---
rn to rn report given to alin barrientos aware of plan of care for admission
[2021-04-23] MEDS: methylPREDNISolone Sod Succ 40 MG/ML VIAL IVPUSH (12:10)
--- NOTE | 2021-04-23 12:16 | PM.DS ---
DS: Providers Provider Date of Service: 04/23/21 Date of admission: 04/23/21 05:42 Primary care physician: Unknown Physician DS: Diagnosis Discharge Diagnosis (1) Asthma exacerbation: Status: Acute (2) Substance abuse: Status: Acute DS: Summary Hospital Course Hospital Course: 35-year-old male with past medical history of asthma who presents to the hospital with complaints of shortness of breath after using heroin and cocaine.? Patient reports that he was partying, he had a night of drinking, using cocaine and heroin and all of a sudden developed shortness of breath.? He denies having any chest pain, no cough, no abdominal pain nausea or vomiting, no diarrhea constipation, no urinary symptoms and no lower extremity edema.? No weakness numbness or tingling, no headache or change in vision ?vitals on arrival were significant for temp of 98.6?, heart rate of 105, respiratory rate of 40, blood pressure 126/95, placed on non-rebreather satting 99% Labs on arrival significant for WBC count 9.7 otherwise unremarkable.? . ? Patient receives to 2 IM Epi,, 3 rounds of hour long albuterol, mag, and solumedrol? but still has wheezing and will be admitted for further management. hopsital course: Patient admitted for asthma exacerbation, also says snorts cocaine - has significant shortness of breath started on nebs and steroids -seems somewhat ease his shortness of breath, still breathing somewhat tight but wants to leave against medical advice -risk of leaving against medical advise discussed in detail including severe hypoxia and -he understands and still wants to leave, alert oriented x3, staff witness the conversation. refuses to talk to patient service specialist also. Above management discussed with the patient in detail length he understand and in agreement with the above plan, time spent 50 minutes and 50% time spent on counseling. Significant findings: As above. Procedures performed: None. Treatment and response: As above. Complications: None. Time Spent with Patient Time attestation: Total time spent providing and/or coordinating discharge services: Discharge coordination time: Greater than 30 minutes Quality: Stroke Does the patient have a stroke diagnosis?: No Physical Exam Vital Signs: Vital Signs: Last Vital Signs Temp 97.7 F 04/23/21 11:07 Pulse 100 04/23/21 11:07 Resp 20 04/23/21 11:07 BP 113/59 L 01/14/22 11:07 Pulse Ox 95 04/23/21 11:07 Oxygen Flow Rate 100 04/23/21 01:04 BMI result Body Mass Index 20.2 Physical exam: Limited because patient wanted to leave Appearance: Alert.? Oriented X3.? not in distress.?. cvs: rrr, [id number] , no murmur res: air enrty seems to be dimished at bases , has rhonchii abd: no rebound or guarding ,nt, bs present. ext pulses present , no cyanosis. neuro: axo3 , nonfocal. DS: Data Data Completed and Pending Labs on day of discharge: Laboratory Results - last 24 hr 04/23/21 04/23/21 04/23/21 01:08 01:34 01:34 WBC 9.7 RBC 5.21 Hgb 14.9 Hct 46.5 MCV 89.3 MCH 28.6 MCHC 32.0 RDW 12.9 Plt Count 248 MPV 10.9 Immature Gran % (Auto) 0.1 Neut % (Auto) 53.9 Lymph % (Auto) 20.1 [place] % (Auto) 7.4 Eos % (Auto) 17.7 H Baso % (Auto) 0.8 Lymph # (Auto) 1.9 [place] # (Auto) 0.7 Eos # (Auto) 1.7 H Baso # (Auto) 0.1 Abs Immat Gran (auto) 0.01 Absolute Neuts (auto) 5.2 Absolute Nucleated RBC 0.000 Nucleated RBC % (auto) 0.0 Sodium 143 Potassium 3.8 Chloride 104 Carbon Dioxide 30 H Anion Gap 13 BUN 8 L Creatinine 1.09 Estim Creat Clear Calc 79.0 Estimated GFR > 60 Random Glucose 117 H Calcium 9.4 COVID-19 (KEI) Negative COVID-19 Clin Com See Note Discharge Plan Discharge Patient Disposition: Left Against Medical Advice Discharge Diagnosis: asthma excerebation, drug abuse Referrals: Physician,Unknown J [Primary Care Provider] - 1 Week Discharge Medications: New prednisone 20 mg tablet 40 mg PO DAILY Qty: 10 RF: 0 Continued albuterol sulfate 90 mcg/actuation Hfa Aerosol Inhaler 2 puff INHALATION Q4-6H PRN (Reason: Shortness Of Breath) RF: 0 (DME) AeroEclipse II Nebulizer Misc See Rx Instructions .ROUTE .MEDSUPPLY Qty: 1 RF: 0 albuterol sulfate 0.63 mg/3 mL solution for nebulization 0.63 mg inhalation QID PRN (Reason: shortness of breath or wheezing) Qty: 75 RF: 0 Discharge Orders: Discharge Order (Routine); Ordered 04/23/21 Ordered By: Angel Schafer Diet: advance to usual diet Activity on Discharge: As tolerated Care Plan Goals: Patient admitted for asthma exacerbation, also says snorts cocaine - has significant shortness of breath started on nebs and steroids -seems somewhat ease his shortness of breath, still breathing somewhat tight but wants to leave against medical advice -risk of leaving against medical advise discussed in detail including severe hypoxia and -he understands and still wants to leave, alert oriented x3, staff witness the conversation. refuses to talk to patient service specialist also. Health Concerns: As above. Plan of Treatment: As above. Assessment: As above.
--- NOTE | 2021-04-23 12:28 | PC.NURSE ---
PATIENT JUST ADMITTED FROM ED,STATES IS FEELING GOOD AND DOES NOT WANT TO STAY UNTIL TOMORROW.Dr Schafer at bedside,patient is leaving AMA,FORM SIGNED,ALERT AND ORIENTED,AWARE OD RISKS OF LEAVING ama.iv OUT.
--- NOTE | 2021-04-23 12:34 | MHC.CM.PN ---
PER REVIEW OF CHART, PATIENT LEFT AMA
== END 2021-04-23 12:38 | disposition left against medical advice (07) | DRG 816 ==
LOC: HO.ED 03:32 → HO.EDOVER 05:45 → HO.S3 09:10
PROVIDERS: Admitting Provider Internal Medicine; Emergency Provider Emergency Medicine; Visit Provider Internal Medicine
DX: T40.5X1A Poisoning by cocaine, accidental (unintentional), initial encounter (principal); J45.52 Severe persistent asthma with status asthmaticus; T40.1X1A Poisoning by heroin, accidental (unintentional), initial encounter; F11.10 Opioid abuse, uncomplicated; Y92.9 Unspecified place or not applicable; F14.10 Cocaine abuse, uncomplicated; F17.210 Nicotine dependence, cigarettes, uncomplicated; Z71.6 Tobacco abuse counseling; Z20.822 Contact with and (suspected) exposure to COVID-19; Z79.899 Other long term (current) drug therapy
CPT/HCPCS: 36415; 71045; 80048; 85025; 87635; 94644; 94645; 99218; 99285; J0171; J2920; J2930; J3475

== ENCOUNTER 2021-04-30 23:04 | Emergency (ER) | payer OTHER, SELFPAY ==
[2021-04-30 23:29] VITALS: BP 107/75; PULSE 113; RESP 22; TEMP 38.1; O2SAT 90; BMI 20.9
--- NOTE | 2021-04-30 23:45 | ED.ASTHMA ---
HPI - Asthma General Chief Complaint: Asthma Stated Complaint: extreme SoB, asthma? Time Seen by Provider: 04/30/21 23:39 Source: patient Mode of arrival: ambulatory Limitations: no limitations History of Present Illness HPI Narrative: Patient with History of asthma came for increased shortness of breath was admitted here last week for same states that he smoked yesterday and started getting worse since then never any inhaler at home was saturating high 80s prior to arrival Related Data Home Medications Medication Instructions Recorded Confirmed albuterol sulfate 90 mcg/actuation 2 puff INHALATION Q4-6H PRN 03/22/21 04/23/21 aerosol inhaler Previous Rx's Medication Instructions Recorded albuterol sulfate 0.63 mg/3 mL 0.63 mg (3 mL) INHALATION QID PRN 03/22/21 solution for nebulization #75 ml nebulizers (AeroEclipse II #1 ea 03/22/21 Nebulizer) albuterol sulfate 2.5 mg (3 mL) INHALATION Q4-6H PRN 05/01/21 #90 ml albuterol sulfate 90 mcg/actuation 2 puff INHALATION Q4-6H PRN #8.5 g 05/01/21 aerosol inhaler (ProAir HFA) prednisone 20 mg tablet 40 mg PO DAILY #10 tab 05/01/21 Allergies Allergy/AdvReac Type Severity Reaction Status Date / Time No Known Allergies Allergy Verified 04/23/21 11:27 [No Known Allergies*] Review of Systems Review of Systems: Yes all other systems are reviewed and are negative PMFSH Past Medical History Medical History Asthma Surgical History No pertinent past surgical history Family History Family History Other No pertinent family history Social History Social History Household Members: Family Housing: House Do you presently have visiting nurse or other home services: No Alcohol intake: never Patient Tobacco Use Status: Current everyday Tobacco user Tobacco use type: Cigarette Second Hand Smoke Exposure: No Substance Use Type: Crack/Cocaine and Marijuana Advance Directives: No Advance Directives Information Provided: Yes service: No Current occupational status: unemployed Physical Exam Vital Signs: Vital Signs: Last Vital Signs Temp 100.6 F H 04/30/21 23:29 Pulse 90 05/01/21 00:46 Resp 16 05/01/21 00:46 BP 101/52 L 05/01/21 00:44 Pulse Ox 96 05/01/21 00:44 BMI result Body Mass Index 20.9 Appearance: Alert. Oriented X3. And moderaterespiratory distress Eyes: No pallor icterus ENT: Pharynx normal. Oral Mucosa moist Neck: Normal inspection. Neck supple. CVS: Sinus tachycardia no murmur our gallop Pulses normal. Respiratory: Moderate respiratory distress. Equal air entry bilateral, moderately decreased air entry with wheezing no rales Abdomen: Soft and nontender. Bowel sounds are present, Skin: Skin warm and dry. Normal skin color. Normal skin turgor. Extremities: No lower extremity edema. No calf tenderness Neuro: Oriented X 3. MDM - Asthma MDM Narrative Medical decision making narrative: Patient with acute asthma attack feeling frequent attacks of same in the past after nebulizing treatment and IV magnesium and steroids patient feeling much better saturating 95% on room air will discharge patient home on inhaler and prednisone and will give him nebulizing solution Medical Records Attestation: I reviewed the patient's medical records. Lab Data Attestation: I reviewed the patient's lab results. Result diagrams: 04/30/21 23:48 04/30/21 23:48 Labs: Lab Results 04/30/21 04/30/21 04/30/21 Range/Units 23:48 23:48 23:48 WBC 6.9 (4.8-10.8) X10*3/uL RBC 5.16 (4.60-5.80) X10*6/uL Hgb 15.0 (14.0-18.0) g/dl Hct 45.3 (42.0-52.0) % MCV 87.8 (80.0-98.0) fL MCH 29.1 (27.0-33.0) pg MCHC 33.1 (31.0-36.0) g/dl RDW 13.2 (11.0-16.0) % Plt Count 254 (160-400) X10*3/uL MPV 10.5 (9.4-12.4) fL Immature Gran % (Auto) 0.3 (0.0-0.4) % Neut % (Auto) 38.8 L (45-73) % Lymph % (Auto) 32.4 (20-40) % [place] % (Auto) 12.4 H (2-11) % Eos % (Auto) 14.9 H (0-4) % Baso % (Auto) 1.2 (0-2) % Lymph # (Auto) 2.2 (1.2-4.9) X10*3/uL [place] # (Auto) 0.9 (0.1-1.2) X10*3/uL Eos # (Auto) 1.0 H (0.0-0.4) X10*3/uL Baso # (Auto) 0.1 (0.0-0.2) X10*3/uL Abs Immat Gran (auto) 0.02 (0.00-0.03) X10*3/uL Absolute Neuts (auto) 2.7 (2.0-8.3) x10*3/uL Absolute Nucleated RBC 0.000 (0.0-0.012) X10*3/uL Nucleated RBC % (auto) 0.0 (0.0-0.2) /100WBC Sodium 139 (135-145) mmol/L Potassium 4.5 (3.3-5.1) mmol/L Chloride 105 (96-108) mmol/L Carbon Dioxide 25 (22-29) mmol/L Anion Gap 14 (12-20) BUN 9 (9-16) mg/dL Creatinine 0.93 (0.5-1.4) mg/dL Estim Creat Clear Calc 93.3 Estimated GFR > 60 Random Glucose 95 (60-115) mg/dL Calcium 9.5 (8.4-10.2) mg/dL COVID-19 ([facility]) Negative (Negative) COVID-19 Clin Com See Note Discharge Plan Discharge Clinical Impression: Asthma with acute exacerbation Qualifiers: Asthma severity: moderate Asthma persistence: persistent Qualified Code(s): J45.41 - Moderate persistent asthma with (acute) exacerbation Patient Disposition: Home, Self-Care Instructions: Asthma (ED) Additional Instructions: Rest at home Avoid smoking Inhaler/nebulizer treatment every 4-6 hours as advised Prednisone as prescribed Report to the ER if gets worse Prescriptions: New prednisone 20 mg tablet 40 mg PO DAILY Qty: 10 RF: 0 albuterol sulfate [ProAir HFA] 90 mcg/actuation HFA aerosol inhaler 2 puff inhalation Q4-6H PRN (Reason: Wheezing) Qty: 8.5 RF: 0 albuterol sulfate 2.5 mg /3 mL (0.083 %) solution for nebulization 2.5 mg inhalation Q4-6H PRN (Reason: Wheezing) Qty: 90 RF: 0 No Action albuterol sulfate 90 mcg/actuation Hfa Aerosol Inhaler 2 puff INHALATION Q4-6H PRN (Reason: Shortness Of Breath) RF: 0 (DME) AeroEclipse II Nebulizer Misc See Rx Instructions .ROUTE .MEDSUPPLY Qty: 1 RF: 0 albuterol sulfate 0.63 mg/3 mL solution for nebulization 0.63 mg inhalation QID PRN (Reason: shortness of breath or wheezing) Qty: 75 RF: 0
[2021-04-30] MEDS: methylPREDNISolone Sod Succ 125 MG/2 ML VIAL IVPUSH (23:46)
[2021-04-30] MEDS: Magnesium Sulfate/H2O 2 GM/50 ML PIGGYBACK IV (23:48)
[2021-04-30] MEDS: 0.9 % Sodium Chloride 1,000 ML 999 ML IV (23:49)
[2021-04-30] MEDS: Albuterol/Iprat 2.5/0.5MG 3 ML AMPUL.NEB INHALE (23:50)
[2021-04-30] MEDS: Albuterol Sulfate (0.083%) 2.5 MG/3 ML VIAL.NEB 7.5 MG INHALE (23:50)
[2021-04-30 23:51] VITALS: PULSE 90; RESP 18; O2SAT 98
--- NOTE | 2021-04-30 23:51 | PC.NURSE ---
pt de-sating in the low 80's pt brought back to room, respiratory called, labs drawn and Iv placed. pt medicated per Jun. pt placed on tele monitor. Will continue to monitor.
[2021-04-30 23:54] LABS: MANUAL DIFF FLAG NO
[2021-04-30 23:56] LABS: Basophils Absolute Auto 0.1 X10*3/uL (0.0-0.2); Basophils Percent Auto 1.2 % (0-2); Eosinophils Percent Auto 14.9 % (0-4); Hematocrit 45.3 % (42.0-52.0); Imm Gran Abs Auto 0.02 X10*3/uL (0.00-0.03); Imm Gran Pct Auto 0.3 % (0.0-0.4); Lymphocytes Absolute Auto 2.2 X10*3/uL (1.2-4.9); Lymphocytes Percent Auto 32.4 % (20-40); Mean Corpuscular HGB Conc 33.1 g/dl (31.0-36.0); Mean Corpuscular Hemoglobin 29.1 pg (27.0-33.0); Mean Corpuscular Volume 87.8 fL (80.0-98.0); Mean Platelet Volume 10.5 fL (9.4-12.4); Monocytes Absolute Auto 0.9 X10*3/uL (0.1-1.2); Monocytes Percent Auto 12.4 % (2-11); Neutrophils Absolute Auto 2.7 x10*3/uL (2.0-8.3); Neutrophils Percent Auto 38.8 % (45-73); Platelet Count 254 X10*3/uL (160-400); Red Blood Count 5.16 X10*6/uL (4.60-5.80); Red Cell Distribution Width 13.2 % (11.0-16.0); White Blood Count 6.9 X10*3/uL (4.8-10.8)
[2021-05-01 00:12] LABS: COVID-19 Test Negative (Negative); IDNOW Serial# 9DD0AD1C
[2021-05-01 00:16] LABS: Anion Gap 14 (12-20); Blood Urea Nitrogen 9 mg/dL (9-16); Calcium 9.5 mg/dL (8.4-10.2); Carbon Dioxide 25 mmol/L (22-29); Chloride 105 mmol/L (96-108); Creatinine Clr Calc Pharmacy 93.3; Estimated Glomerular Filt Rate > 60; Glucose Random 95 mg/dL (60-115); Potassium 4.5 mmol/L (3.3-5.1); Sodium 139 mmol/L (135-145)
[2021-05-01 00:44] VITALS: BP 101/52; PULSE 94; RESP 19; O2SAT 96
[2021-05-01 00:46] VITALS: PULSE 90; RESP 16; O2SAT 95
[2021-05-01] MEDS: Albuterol Sulfate 90 MCG 8 GM INHALER 2 PUFF INHALE (00:46)
[2021-05-01] MEDS: Albuterol Sulfate (0.083%) 2.5 MG/3 ML VIAL.NEB 5 MG INHALE (00:46)
--- NOTE | 2021-05-01 01:53 | PC.NURSE ---
I assumed care of this pt upon his arrival to bed 4. He arrived severely short of breath, Rr 28, labored with use of abdominal accessory muscles, room air sat's in the 80's per electrical engineering director. Pt was immediately placed on wall O2, RT was paged to bedside and MD came to bedside immediately. IV access and labs were obtained, pt was started on duoneb's shortly after arrival to bed 4 and there was noticeable decrease in use of accessory muscles. After duonebs he is placed on 2L NC and his sat's have remained 95% or better. RR now 20, non-labored, no cyanosis. He is taking PO food and fluids without difficulty. Will continue to monitor.
[2021-05-01 02:40] VITALS: PULSE 108; RESP 18; O2SAT 97
== END 2021-05-01 03:09 | disposition home or self-care (01) ==
PROVIDERS: Emergency Provider Internal Medicine
DX: J45.41 Moderate persistent asthma with (acute) exacerbation (principal); Z20.822 Contact with and (suspected) exposure to COVID-19; F17.200 Nicotine dependence, unspecified, uncomplicated; F12.90 Cannabis use, unspecified, uncomplicated
CPT/HCPCS: 36415; 80048; 85025; 87635; 94640; 94644; 96361; 96374; 96375; 99284; 99285; J2930; J3475